=== PATIENT | female | born 1945 | race African-American/Black ===

== ENCOUNTER 2023-01-26 15:56 | Emergency (ER) | payer OTHER ==
[~2023-01-26] VITALS: Ht 167.6 cm; Wt 73.0 kg
[2023-01-26 16:01] VITALS: O2SAT 98
[2023-01-26] MEDS ORDERED: HYDROCODONE/ACETAMINOPHEN 5/325MG TABLET PO NR (16:15)
[2023-01-26] MEDS ORDERED: HYDROCODONE/ACETAMINOPHEN 5/325MG TABLET PO ONE (16:15)
[2023-01-26 20:03] LABS: BASOPHILS % 0.4 % (0.0-2.0); EOSINOPHILS % 0.2 % (0.0-5.0); HEMATOCRIT. 40.6 % (36.0-48.0); HEMOGLOBIN. 12.6 g/dL (12.0-16.0); LYMPHOCYTES % 8.5 % (20.0-50.0); MEAN CORPUSCULAR HEMOGLOBIN 24.9 pg (28.0-32.0); MEAN CORPUSCULAR VOLUME 80.2 fL (81.0-99.0); MEAN PLATELET VOLUME 9.1 fl (7.4-10.4); NEUTROPHILS % 82.9 % (40.0-76.0); PLATELET 206 x1000/uL (130-400); RED BLOOD CELL COUNT 5.06 mill/uL (4.2-5.4); RED CELL DISTRIBUTION WIDTH 15.3 % (11.6-14.6)
[2023-01-26 20:17] LABS: CHLORIDE 109 mEq/L (98-107)
[2023-01-26 20:32] LABS: T4 FREE 1.91 ng/dL (0.76-1.46)
[2023-01-27 00:30] VITALS: BP 122/68; PULSE 78; RESP 20; TEMP 98.9
== END 2023-01-27 02:13 | disposition short-term general hospital (02) ==
LOC: ER 15:56 → CANBEDREQ 21:21 → ER 01-27 02:13
DX: R00.1 Bradycardia, unspecified (principal); I44.2 Atrioventricular block, complete; Z90.49 Acquired absence of other specified parts of digestive tract; Z20.822 Contact with and (suspected) exposure to COVID-19
CPT/HCPCS: 99291; 70450; 80053; 83880; 84439; 83735; 84443; 85025; 84484; 36415; 71045; 73130; 73630; 70486; 72125; 93005; 84481; 87426; C9803